=== PATIENT | female | born 1965 | race Native Hawaiian/Other Pacific Islander ===

== ENCOUNTER 2018-02-21 13:38 | Emergency (ER) | payer OTHER ==
[~2018-02-21] VITALS: Ht 152.4 cm; Wt 68.0 kg
[~2018-02-21 13:38] MED LIST: ALBU0.042 INH; ALBU90AE13 INH; ALBUTEROL0.083 % IN; PREDNISONE5 M1 PO
[2018-02-21 15:25] VITALS: BP 128/86; TEMP 97.4
== END 2018-02-21 15:25 | disposition home or self-care (01) ==
LOC: ED 13:38
DX: M25.561 Pain in right knee (principal); M25.461 Effusion, right knee
CPT/HCPCS: 99282

== ENCOUNTER 2018-07-09 11:35 | Inpatient (IN) | payer OTHER ==
[~2018-07-09] VITALS: Ht 152.4 cm; Wt 62.6 kg
[2018-07-09] VITALS (10 sets, daily range): BP systolic 138–164; BP diastolic 84–104; TEMP 97.4–98.1; Ht 152.4 cm; Wt 62.6 kg
[2018-07-09 12:14] LABS: PLATELET COUNT 509 K/uL (152-353)
--- NOTE | 2018-07-09 15:20 | NUR ---
PT ARRIVED VIA BED, PT TO ROOM 1111. PT ALERT AND ORIENTED X 3. PT ORIENTED TO ROOM AND CALL LIGHT. BED IN LOWEST POSITION WITH CALL LIGHT IN REACH
[2018-07-09] MEDS ORDERED: LISI20TA11 PO (16:51)
[2018-07-09] MEDS ORDERED: CITALOPRAM20 M1 PO (16:51)
[2018-07-10 04:00] VITALS: BP 155/88; TEMP 97.8
[2018-07-10 04:46] LABS: PLATELET COUNT 482 K/uL (152-353)
[2018-07-10 05:00] LABS: POTASSIUM 4.2 mmol/L (3.6-5.2)
[2018-07-10 08:00] VITALS: BP 131/82; TEMP 97.8
[2018-07-10 12:00] VITALS: BP 136/71; TEMP 97.6
[2018-07-10 16:00] VITALS: BP 118/63; TEMP 98
[2018-07-10 20:00] VITALS: BP 113/67; TEMP 97.8
[2018-07-11] VITALS: BP 119/70; TEMP 97.9
[2018-07-11 04:00] VITALS: BP 126/70; TEMP 98
[2018-07-11 08:00] VITALS: BP 132/83; TEMP 97.4
[2018-07-11] MEDS ORDERED: LISI20TA11 PO (10:21)
[2018-07-11] MEDS ORDERED: CITALOPRAM20 M1 PO (10:21)
[2018-07-11] MEDS ORDERED: IPRATROPIUM/ INH (11:02)
[2018-07-11] MEDS ORDERED: PRED20TA27 PO (11:19)
[2018-07-11] MEDS ORDERED: LEVAQUIN250 MG PO (11:21)
[2018-07-11 12:00] VITALS: BP 132/75; TEMP 97.5
--- NOTE | 2018-07-11 15:42 | NUR ---
1400 PT IV DC'D TIP INTACT, NO REDNESS OR SWELLING NOTED; PT TOLERATED WELL. PT GIVEN DC INSTRUCTIONS. PT INSTRUCTED TO COMPLETE ALL MEDICATIONS PRESCRIBED. CON'T ALL HOME MEDS. PT VOICED UNDERSTANDING. PT LEFT VIA WC
[2018-07-11 20:00] VITALS: BP 117/57; TEMP 98
== END 2018-07-11 14:00 | disposition home or self-care (01) | DRG 191 ==
LOC: ED 11:35 → MED/SURG 14:45
PROVIDERS: Internal Medicine; ADMIT Emergency Medicine
DX: J44.1 Chronic obstructive pulmonary disease with (acute) exacerbation (principal); G40.802 Other epilepsy, not intractable, without status epilepticus; R00.0 Tachycardia, unspecified; D72.828 Other elevated white blood cell count; Z72.0 Tobacco use; I10 Essential (primary) hypertension
CPT/HCPCS: 36600; 80048; 80053; 82550; 82553; 82805; 84484; 85027; 85379; 87070; 87205; 93005; 94640; 94664; 94760; 96366; 96374; 96375; 99284; J1650; J2060; J2405; J2920; J2930

== ENCOUNTER 2020-04-17 03:06 | Emergency (ER) | payer OTHER ==
[~2020-04-17] VITALS: Ht 152.4 cm; Wt 70.3 kg
[2020-04-17 03:06] VITALS: TEMP 98
[~2020-04-17 03:06] MED LIST changes: +CITALOPRAM20 M1 PO; +IPRATROPIUM/ INH; +LEVAQUIN250 MG PO; +LISI20TA11 PO; +PRED20TA27 PO
[2020-04-17 03:22] LABS: PLATELET COUNT 517 K/uL (152-353)
[2020-04-17 03:52] LABS: POTASSIUM 4.5 mmol/L (3.6-5.2)
[2020-04-17 05:30] VITALS: BP 139/76
== END 2020-04-17 05:30 | disposition home or self-care (01) ==
LOC: ED 03:06
PROVIDERS: Emergency Medicine Emergency Medical Services
DX: J44.1 Chronic obstructive pulmonary disease with (acute) exacerbation (principal); Z20.828 Contact with and (suspected) exposure to other viral communicable diseases
CPT/HCPCS: 80053; 85027; 87635; 94664; 96360; 96374; 96375; 99284; J1100; U0003

== ENCOUNTER 2020-07-10 07:49 | Emergency (ER) | payer OTHER ==
[~2020-07-10] VITALS: Ht 152.4 cm; Wt 73.5 kg
[2020-07-10 07:49] VITALS: TEMP 97.9
[2020-07-10 08:24] LABS: PLATELET COUNT 396 K/uL (152-353)
[2020-07-10 09:00] LABS: PARTIAL THROMBOPLASTIN TIME 24.7 SECONDS (24.5-33.6)
[2020-07-10 09:45] VITALS: BP 150/87
== END 2020-07-10 10:01 | disposition home or self-care (01) ==
LOC: ED 07:54
PROVIDERS: Family Medicine
DX: J44.1 Chronic obstructive pulmonary disease with (acute) exacerbation (principal); Z20.822 Contact with and (suspected) exposure to COVID-19; F17.210 Nicotine dependence, cigarettes, uncomplicated
CPT/HCPCS: 36600; 82550; 82553; 82805; 83880; 84484; 85027; 85379; 85610; 85730; 87635; 87651; 93005; 94664; 96374; 99284; J2930; U0003

== ENCOUNTER 2021-05-05 07:53 | Emergency (ER) | payer OTHER ==
[~2021-05-05] VITALS: Ht 152.4 cm; Wt 73.5 kg
[2021-05-05 08:15] LABS: POTASSIUM 4.5 mmol/L (3.6-5.2)
[2021-05-05 08:18] LABS: PLATELET COUNT 506 K/uL (152-353)
[2021-05-05 09:57] VITALS: BP 114/73; TEMP 98.1
== END 2021-05-05 11:16 | disposition short-term general hospital (02) ==
LOC: ED 07:53
PROVIDERS: Emergency Medicine
PROC: 5A1221J Performance of Cardiac Output, Continuous, Automated (ICD-10-PCS; principal; 2021-05-05)
PROC: 5A1935Z Respiratory Ventilation, Less than 24 Consecutive Hours (ICD-10-PCS; 2021-05-05)
DX: I46.9 Cardiac arrest, cause unspecified (principal); J44.1 Chronic obstructive pulmonary disease with (acute) exacerbation; F17.210 Nicotine dependence, cigarettes, uncomplicated; Z11.52 Encounter for screening for COVID-19
CPT/HCPCS: 36600; 80053; 80320; 82805; 82948; 84484; 85027; 85379; 85610; 87040; 87502; 87635; 92950; 93005; 94002; 94003; 94664; 96360; 96361; 96365; 96366; 96375; 99285; 99291; J0171; J1956; J2930; J3490; U0003